=== PATIENT | male | born 1965 | race African-American/Black ===

== ENCOUNTER 2019-09-05 11:27 | Outpatient (CLI) | payer MEDICARE ==
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
== END 2019-09-05 13:27 | disposition home or self-care (01) ==
LOC: RAD 11:27
DX: R05 Cough (principal)
CPT/HCPCS: 71046